=== PATIENT | male | born 1985 | race Caucasian/White ===

== ENCOUNTER 2021-05-22 08:08 | Emergency (ER) | payer BC ==
[~2021-05-22] VITALS: Ht 180.3 cm; Wt 88.5 kg
[2021-05-22 08:08] VITALS: BP_SYST 119
--- NOTE | 2021-05-22 08:08 | NUR ---
BROUGHT IN BY [facility], PLACED IN BED #4 AND TRIAGED. REPORT GIVEN TO EZEKIEL
--- NOTE | 2021-05-22 08:20 | NUR ---
RECEIVED PT IN BED 4, IN NAD, VSS, AAOx3, HAD SYNCOPAL EPISODE WHILE ON TOILET, SUSTAINED MILD HEAD BUMP AND POSSIBLY OUT FOR A FEW SECONDS. PT TO BE FURTHER ASSESSED BY ED MD FOR PLAN OF CARE WITH DISPOSITION.
--- NOTE | 2021-05-22 08:20 | NUR ---
ED MD AT BEDSIDE FOR ASSESSMENT
--- NOTE | 2021-05-22 08:42 | NUR ---
TAKEN TO RADIOLOGY VIA WHEELCHAIR, FOR TESTING
[2021-05-22] MEDS ORDERED: NACL 0.9% 1,000 ML IV ONE (08:45)
[2021-05-22 09:12] LABS: BASOPHILS % (AUTO) 0.3 % (0.0-2.0); EOSINOPHILS # (AUTO) 0.1 K/uL (0.0-0.4); EOSINOPHILS % (AUTO) 0.5 % (0.0-4.0); HEMATOCRIT 47.8 % (36-54); HEMOGLOBIN 15.6 g/dL (14.0-18.0); LYMPHOCYTES # (AUTO) 0.5 K/uL (1.0-5.5); LYMPHOCYTES % (AUTO) 3.5 % (20.5-51.5); MEAN CORPUSCULAR HEMOGLOBIN 29 pg (27-31); MEAN CORPUSCULAR HGB CONC 33 % (32-36); MEAN CORPUSCULAR VOLUME 89 fL (79.0-98.0); MONOCYTES # (AUTO) 0.9 K/uL (0.0-1.0); NEUTROPHILS # (AUTO) 11.4 K/uL (1.8-7.7); NEUTROPHILS % (AUTO) 88.7 % (40.0-70.0); PLATELET COUNT (AUTO) 272 K/uL (130-430); RED BLOOD CELL COUNT(AUTO) 5.38 MIL/uL (4.2-6.2); RED CELL DISTRIBUTION WIDTH 13.8 % (9.0-15.0); WHITE BLOOD COUNT (AUTO) 12.9 K/uL (4.8-10.8)
[2021-05-22 09:24] LABS: CALCIUM 7.8 mg/dL (8.4-11.0); CREATININE 1.03 mg/dL (0.55-1.30); POTASSIUM 4.4 mmol/L (3.5-5.1)
[2021-05-22 09:37] LABS: TOTAL BILIRUBIN 0.7 mg/dL (0.0-1.0)
--- NOTE | 2021-05-22 09:55 | NUR ---
Patient given written and verbal discharge instructions and verbalizes understanding. ER MD discussed with patient the results and treatment provided. Patient in stable condition. ID arm band removed. IV catheter removed intact and dressing applied, no active bleeding. Patient educated on pain management and to follow up with PMD. Opportunity for questions provided and answered.
== END 2021-05-22 09:55 | disposition home or self-care (01) ==
LOC: SED 08:08
DX: R55 Syncope and collapse (principal)
CPT/HCPCS: 36415; 70450; 72125; 76376; 80053; 82962; 85025; 96360; 99284; J7030